=== PATIENT | female | born 1960 | race Caucasian/White ===

== ENCOUNTER 2019-04-05 14:17 | Outpatient (CLI) | payer OTHER, SELFPAY ==
--- NOTE | 2019-04-18 05:36 | SLEEP_ITS ---
Split Night Sleep Study DATE OF STUDY: 04/05/2019 PRIMARY CARE: Dr. Rk Abbott. REASON FOR THIS STUDY: Obstructive sleep apnea syndrome. HISTORY: This patient is a 59-year-old woman, 61 inches tall weighing 189 pounds with a body mass index of 35.7. She has a known history of obstructive sleep apnea syndrome on a prior study and has not had a change in her pressure for years. She originally used a full face mask and changed to a nasal pillow. She is feeling tired during the day, which started 1 or 2 years ago. She has periodic nasal congestion, which causes her to take off her CPAP mask. She goes to bed between 11 p.m. and midnight, wakes between 6 and 7 in the morning quickly, wakes once at night for nocturia, goes back to sleep easily. She has 2-3 caffeinated beverages a day and 3-4 alcoholic beverages at 1 time per week, more during the holidays. She has been compliant with CPAP usage on a pressure of 5 with an AHI of 1.5. A prior sleep study on 08/26/2013 at our sleep lab showed an optimal pressure of 5 cm with an AHI of 0. She was using a Mirage Quattro full face mask with a heated humidifier at that time. The patient currently does not gasp for breath at night. She occasionally has breathing problems witnessed by others. She rarely sweats excessively at night, notices her heart pounding irregularly at night. She rarely falls asleep during the day, rarely involuntarily, never while driving. She does not have loss of muscle tone with strong emotion. She occasionally has daytime difficulties due to sleepiness, works as a real estate manager. She does not feel paralyzed on waking or falling asleep. She does not feel afraid to go to sleep. She rarely has nightmares. She frequently remembers her dreams. She occasionally has racing thoughts. She rarely has anxiety. She occasionally has muscular tension and notices parts of her body jerking. She never kicks at night or has crawly achy feelings in her legs. She occasionally has leg pain at night. She does not have morning jaw pain. She does not grind her teeth. She occasionally is bothered by pain during the day as well at night. She frequently wakes up feeling stiff in the morning. She constantly has sore achy muscles. She frequently wakes up with pain in the neck and spine. It takes her 15 minutes to fall asleep. She does not take naps. A short nap is not refreshing. She is drowsy in the morning for 3 hours or longer. MEDICAL COMORBIDITIES: Hypothyroidism. She has had her tonsils and adenoids removed. She has also had a deviated septum repair. MEDICATIONS: 1. Levothyroxine 0.125 mg daily. 2. Estradiol 0.5 mg daily. HABITS: Smoked tobacco 10 years ago. Caffeine, 2 to 3 per day. Occasional alcohol. DESCRIPTION OF THE STUDY: On the Neligh Sleepiness Scale, her score is 7. This was conducted as a split night study using the Synergy Hub multiple channel system including EOG, EEG, submental EMG, EKG, nasal and oral airflow using thermistors and nasal pressure sensors, chest and abdominal belts, body position data, and pulse oximetry. The study was scored using [facility] guidelines. During the baseline portion, recording time was 229.6 minutes. Sleep time was 144.7 minutes. Sleep efficiency was 63%. Sleep latency was 5.9 minutes and there was no REM. She had 34 awakenings and spent 79 minutes awake after sleep onset. Sleep architecture showed 20% stage 1 sleep, 80% stage 2 sleep, no stage 3 sleep, and no REM. She spent 16.2% of this study supine. Sleep was fragmented with constant shifts between wake stage 1 and stage 2. The apnea-hypopnea index was 16.6. She had no REM during this portion. She had 1 obstructive apnea, 19 obstructive hypopneas in supine non-REM for an index of 51
== END 2019-04-05 14:18 | disposition home or self-care (01) ==
LOC: ANHCSM 06-22 14:17
PROVIDERS: PCP Internal Medicine
DX: G47.33 Obstructive sleep apnea (adult) (pediatric) (principal); Z99.89 Dependence on other enabling machines and devices
CPT/HCPCS: 95811

== ENCOUNTER 2019-10-14 11:19 | Outpatient (CLI) | payer OTHER, SELFPAY ==
--- NOTE | ~2019-10-14 | XR_ITS ---
XR lumbar spine 2-3V DATE: 10/14/2019 11:53 INDICATION: Low back pain TECHNIQUE: AP, lateral, coned lateral lumbosacral views COMPARISON: None FINDINGS: There is prominent degenerative change at the apophyseal joints of the lower lumbar and lum bosacral area with associated minimal grade 1 anterolisthesis at L5-S1. The lumbar vertebrae are otherwise normally aligned. There is moderate diffuse osteopenia. No fracture or bone destruction is evident. The T11-L5 pedicles are intact. There is moderately severe degenerative disc disease in the lower thoracic spine and moderate degener ative disease at L1-2 and L2-3, mild degenerative disc disease at L3-4. The sacroiliac joints are intact. Status post cholecystectomy. IMPRESSION: Degenerative changes Osteopenia Reviewed, dictated and finalized at location A.
[2019-10-14 12:19] LABS: Anion Gap 7 mmol/L (8-16); Blood Urea Nitrogen 14 mg/dL (7-18); Carbon Dioxide 28 mmol/L (21-32); Chloride 107 mmol/L (98-108); Cholesterol 186 mg/dL (0-200); Estimated Glomerular Filt Rate > 60; Glucose 99 mg/dL (70-99); HDL Direct 47 mg/dL (40-60); LDL Cholesterol Calculated 90 mg/dL (<130); Osmolality Calculated 294 mOsm/kg (285-295); Potassium 4.1 mmol/L (3.5-5.1); Sodium 142 mmol/L (136-145); Thyroid Stimulating Hormone 0.74 uIU/mL (0.36-3.74); Triglycerides 245 mg/dL (0-150)
== END 2019-10-14 11:20 | disposition home or self-care (01) ==
LOC: CHSLAB 11:23
PROVIDERS: PCP Internal Medicine; Visit Provider Internal Medicine
DX: M54.5 Low back pain (principal); G89.29 Other chronic pain; Z13.220 Encounter for screening for lipoid disorders; R03.0 Elevated blood-pressure reading, without diagnosis of hypertension; E03.9 Hypothyroidism, unspecified
CPT/HCPCS: 36415; 72100; 80048; 80061; 84443

== ENCOUNTER → 2019-11-10 12:47 | Outpatient (CLI) | payer OTHER, SELFPAY ==
--- NOTE | ~2019-11-10 | MM_ITS ---
EXAMINATION: MM screening [facility] BI w petar HISTORY: Screening mammogram TECHNIQUE: Craniocaudal and mediolateral oblique 3-D tomosynthesis images were obtained and synthetic 2-D images were generated. CAD analysis was submitted and interpreted. COMPARISON: 06/23/2018, 11/28/2015, 11/07/2014 BREAST PARENCHYMAL COMPOSITION: There are scattered areas of fibroglandular density. FINDINGS: RIGHT BREAST: A possible mass is present in the middle third of the outer breast approximately 7.5 cm from the nipple. LEFT BREAST: There is no evidence of suspicious mass, calcification, or architectural distortion to s uggest malignancy. There has been no significant interval change. IMPRESSION: 1. Possible right breast mass 2. Additional mammographic views and possible breast ultrasound are recommended. BI-RADS Category 0: Incomplete: Needs additional imaging evaluation. Reviewed, dictated and finalized at location A. IMPRESSION: 1. Possible right breast mass 2. Additional mammographic views and possible breast ultrasound are recommended . BI-RADS Category 0: Incomplete: Needs additional imaging evaluation.
== END ==
PROVIDERS: PCP Internal Medicine; Visit Provider Obstetrics & Gynecology
DX: Z12.31 Encounter for screening mammogram for malignant neoplasm of breast (principal); R92.8 Other abnormal and inconclusive findings on diagnostic imaging of breast
CPT/HCPCS: 77063; 77067

== ENCOUNTER → 2019-11-29 09:54 | Outpatient (CLI) | payer OTHER, SELFPAY ==
--- NOTE | ~2019-11-29 | US_ITS ---
US breast RT limited DATE: 11/29/2019 11:00 Please refer to the 11/29/2019 right diagnostic mammogram and right breast ultrasound report. IMPRESSION: BI-RADS Category 4: Suspicious abnormality; biopsy should be considered Recommendation: Ultrasound-guided biopsy of right 10:00 breast lesion Diana in Dr. Torres's office was notified of the finding and the ultrasound-guided biopsy recommenda tion on 11/29/2019 at 1110 hours Reviewed, dictated and finalized at Location A. Reviewed, dictated and finalized at location A. IMPRESSION: BI-RADS Category 4: Suspicious abnormality; biopsy should be consid ered Recommendation: Ultrasound-guided biopsy of right 10:00 breast lesion Diana in Dr. Torres's office was notified of the finding and the ultrasound-gu ided biopsy recommendation on 11/29/2019 at 1110 hours
--- NOTE | ~2019-11-29 | MM_ITS ---
EXAMINATION: MM diagnostic mammo unilat RT HISTORY: Possible mass in middle third of outer breast 7.5 cm from nipple was reported on 11/10/2019 s creening mammogram TECHNIQUE: Additional 3-D tomosynthesis images of the right breast were performed and synthetic 2-D i mages were generated. CAD analysis was submitted and interpreted. High resolution upper outer quadran t right breast ultrasound was performed. COMPARISON: 11/10/2019, 06/23/2018 and 11/28/2015 bilateral digital screening mammogram examinations FINDINGS: MAMMOGRAPHIC FINDINGS: A new or shadowing antiparallel ill-defined approximately 6.5 mm mass is suggested approximately 7 cm deep to the nipple in the upper outer quadrant of the right breast. ULTRASOUND: Corresponding to the mammographic finding at 10:00 5.5 cm from the nipple there is an ill-defined irr egular antiparallel hypoechoic area with posterior shadowing, suspicious for malignancy. IMPRESSION: 1. Approximately 6 mm malignant mass is suggested at 10:00 5.5 cm from nipple 2. Ultrasound-guided biopsy of 10:00 lesion 5.5 cm from nipple is recommended BI-RADS category 4, suspicious findings. Dr. Gatito Ortiz was telephoned by Dr. Joseph with the report and biopsy recommendation on 11/29/2019 at 1110 hours. Reviewed, dictated and finalized at location A.
== END ==
PROVIDERS: PCP Internal Medicine; Visit Provider Obstetrics & Gynecology
DX: R92.8 Other abnormal and inconclusive findings on diagnostic imaging of breast (principal)
CPT/HCPCS: 76642; 77065

== ENCOUNTER 2020-04-18 14:04 | Outpatient (CLI) | payer OTHER, SELFPAY | END 2020-04-18 14:05 | disposition home or self-care (01) | LOC: ANHCOVIDVC 14:04 | PROVIDERS: PCP Internal Medicine | DX: Z23 Encounter for immunization (principal) | CPT/HCPCS: 0001A; 91300 ==

== ENCOUNTER 2020-04-29 09:33 | Outpatient (CLI) | payer OTHER, SELFPAY ==
[2020-04-29 10:39] LABS: Anion Gap 13 mmol/L (8-16); Blood Urea Nitrogen 18 mg/dL (7-18); Carbon Dioxide 24 mmol/L (21-32); Chloride 104 mmol/L (98-108); Cholesterol 169 mg/dL (0-200); Estimated Glomerular Filt Rate > 60; Glucose 111 mg/dL (70-99); HDL Direct 51 mg/dL (40-60); LDL Cholesterol Calculated 91 mg/dL (<130); Osmolality Calculated 294 mOsm/kg (285-295); Potassium 4.2 mmol/L (3.5-5.1); Sodium 141 mmol/L (136-145); Thyroid Stimulating Hormone 0.17 uIU/mL (0.36-3.74); Triglycerides 133 mg/dL (0-150)
== END 2020-04-29 09:34 | disposition home or self-care (01) ==
LOC: CHSLAB 09:34
PROVIDERS: PCP Internal Medicine; Visit Provider Internal Medicine
DX: Z13.220 Encounter for screening for lipoid disorders (principal); E03.9 Hypothyroidism, unspecified; R03.0 Elevated blood-pressure reading, without diagnosis of hypertension
CPT/HCPCS: 36415; 80048; 80061; 84443

== ENCOUNTER 2020-05-09 13:53 | Outpatient (CLI) | payer OTHER, SELFPAY | END 2020-05-09 13:54 | disposition home or self-care (01) | LOC: ANHCOVIDVC 13:53 | PROVIDERS: PCP Internal Medicine | DX: Z23 Encounter for immunization (principal) | CPT/HCPCS: 0002A; 91300 ==

== ENCOUNTER 2020-06-24 11:24 | Outpatient (CLI) | payer OTHER, SELFPAY ==
[2020-06-24 12:22] LABS: Thyroid Stimulating Hormone 1.47 uIU/mL (0.36-3.74)
== END 2020-06-24 11:25 | disposition home or self-care (01) ==
LOC: CHSLAB 11:33
PROVIDERS: PCP Internal Medicine; Visit Provider Nurse Practitioner
DX: E03.9 Hypothyroidism, unspecified (principal)
CPT/HCPCS: 36415; 84443

== ENCOUNTER 2020-11-18 09:42 | Outpatient (CLI) | payer OTHER, SELFPAY ==
[2020-11-18 10:17] LABS: Hemoglobin A1C 5.8 % (<5.7)
[2020-11-18 11:32] LABS: Alanine Aminotransferase 85 U/L (14-59); Albumin Level 3.6 g/dL (3.4-5.0); Alkaline Phosphatase 146 U/L (46-116); Anion Gap 10 mmol/L (8-16); Aspartate Amino Transferase 42 U/L (15-37); Bilirubin,Total 0.7 mg/dL (0.00-1.00); Blood Urea Nitrogen 14 mg/dL (7-18); Calcium 8.9 mg/dL (8.5-10.1); Carbon Dioxide 25 mmol/L (21-32); Chloride 108 mmol/L (98-108); Cholesterol 192 mg/dL (0-200); Estimated Glomerular Filt Rate > 60; Glucose 86 mg/dL (70-99); HDL Direct 43 mg/dL (40-60); LDL Cholesterol Calculated 120 mg/dL (<130); Osmolality Calculated 295 mOsm/kg (285-295); Potassium 4.3 mmol/L (3.5-5.1); Sodium 143 mmol/L (136-145); Thyroid Stimulating Hormone 2.24 uIU/mL (0.36-3.74); Total Protein 6.8 g/dL (6.4-8.2); Triglycerides 147 mg/dL (0-150)
[2020-11-20 14:24] LABS: Vitamin D 25 Hydroxy 24 ng/mL (30-100)
== END 2020-11-18 09:43 | disposition home or self-care (01) ==
LOC: CHSLAB 09:47
PROVIDERS: PCP Internal Medicine; Visit Provider Nurse Practitioner
DX: E78.2 Mixed hyperlipidemia (principal); R73.02 Impaired glucose tolerance (oral); Z78.0 Asymptomatic menopausal state; E03.9 Hypothyroidism, unspecified
CPT/HCPCS: 36415; 80053; 80061; 82306; 83036; 84443

== ENCOUNTER 2022-02-18 10:32 | Outpatient (CLI) | payer OTHER, SELFPAY ==
[2022-02-18 11:00] LABS: Hemoglobin A1C 5.7 % (<5.7)
[2022-02-18 12:20] LABS: Alanine Aminotransferase 54 U/L (14-59); Albumin Level 3.9 g/dL (3.4-5.0); Alkaline Phosphatase 136 U/L (46-116); Anion Gap 13 mmol/L (8-16); Aspartate Amino Transferase 32 U/L (15-37); Bilirubin,Total 0.7 mg/dL (0.00-1.00); Blood Urea Nitrogen 18 mg/dL (7-18); Carbon Dioxide 24 mmol/L (21-32); Chloride 102 mmol/L (98-108); Cholesterol 175 mg/dL (0-200); Estimated Glomerular Filt Rate > 60; Glucose 102 mg/dL (70-99); HDL Direct 46 mg/dL (40-60); LDL Cholesterol Calculated 104 mg/dL (<130); Osmolality Calculated 289 mOsm/kg (285-295); Potassium 4.3 mmol/L (3.5-5.1); Sodium 139 mmol/L (136-145); Thyroid Stimulating Hormone 2.05 uIU/mL (0.36-3.74); Total Protein 7.2 g/dL (6.4-8.2); Triglycerides 123 mg/dL (0-150)
== END 2022-02-18 10:33 | disposition home or self-care (01) ==
LOC: CHSLAB 10:34
PROVIDERS: PCP Nurse Practitioner; Visit Provider Nurse Practitioner
DX: E78.2 Mixed hyperlipidemia (principal); E03.9 Hypothyroidism, unspecified; R73.02 Impaired glucose tolerance (oral); Z79.899 Other long term (current) drug therapy
CPT/HCPCS: 36415; 80053; 80061; 83036; 84443

== ENCOUNTER → 2022-05-05 12:12 | Outpatient (CLI) | payer OTHER, SELFPAY ==
--- NOTE | ~2022-05-05 | DEXA_ITS ---
Bone Density Report Name: KOBY ORDONEZ Age: 62 Sex: Female Ethnicity: White Date of : 1960 Indication: osteopenia; height loss; hysterectomy; postmenopausal Referring Provider: CIERA WHITE Study: Bone densitometry was performed. Exam Date: May 05, 2022 Accession number: [id number] Bone Density: Region BMD T-score Z-score Classification AP Spine (L1-L4) 0.947 -0.9 0.6 Normal Femoral Neck (Left) 0.777 -0.6 0.7 Normal Total Hip (Left) 1.109 1.4 2.4 Normal Femoral Neck (Right) 0.794 -0.5 0.8 Normal Total Hip (Right) 1.072 1.1 2.1 Normal Total Hip Mean 1.091 1.3 2.3 Normal World Health Organization criteria for BMD impression classify patients as: Normal (T-score at or above -1.0), Osteopenia (T-score between -1.0 and -2.5), or Osteoporosis (T-score at or below -2.5). 10-year Fracture Risk: FRAX not reported because: All T-scores for Spine Total, Hip Total, Femoral Neck at or above -1.0 Previous Exams: Region Exam Age BMD T-score BMD Change BMD Change Date g/cm2 vs Baseline vs Previous AP Spine(L1-L4) 05/05/2022 62 0.947 -0.9 0.050 0.015 11/07/2014 54 0.931 -1.1 0.035* 0.035* 06/21/2012 52 0.896 -1.4 Total Hip(Left) 05/05/2022 62 1.109 1.4 0.059 -0.001 06/23/2018 58 1.110 1.4 0.060 0.072 11/07/2014 54 1.038 0.8 -0.012 -0.012 06/21/2012 52 1.050 0.9 Total Hip(Right) 05/05/2022 62 1.072 1.1 0.054 0.010 06/23/2018 58 1.062 1.0 0.044 0.019 11/07/2014 54 1.043 0.8 0.025 0.025 06/21/2012 52 1.018 0.6 *Denotes significance at 95% confidence level, LSC for AP Spine = 0.022 g/cm2, LSC for Total Hip = 0.027 g/cm2 Clinical Information Provided by Patient: Has used the following medications: Vitamin D, Calcium Has the following medical conditions: Hysterectomy Patient maximum height was 61 Menopause Age: 45 No regular weight bearing exercise Drinks caffeinated beverages Onset of menses at age 13 Number of children 1 Impression: The patient has normal bone mass. No significant bone loss was observed. Discussion: BONE DENSITY IS ABOVE THE MINIMUM DESIRABLE LEVEL AT ALL SKELETAL SITES TESTED. This patient?s bone mineral density is above the minimum desirable level (T-score -1.0 or better) at all sites measured. The patient shoul
== END ==
PROVIDERS: PCP Internal Medicine; Visit Provider Obstetrics & Gynecology
DX: Z78.0 Asymptomatic menopausal state (principal)
CPT/HCPCS: 77080

== ENCOUNTER 2022-11-23 10:49 | Outpatient (CLI) | payer OTHER, SELFPAY ==
[2022-11-23 11:04] LABS: Hematocrit 41.5 % (35.0-49.0); Hemoglobin 13.8 g/dL (12.0-15.0); Mean Corpuscular HGB Conc 33.3 g/dL (32.0-36.0); Mean Corpuscular Hemoglobin 29.9 pg (27.0-31.0); Mean Corpuscular Volume 89.8 fL (78.0-102.0); Mean Platelet Volume 9.3 fl (9.2-11.8); Platelet Count Result 275 K/mm3 (150-420); Red Blood Count 4.62 M/mm3 (4.20-5.40); Red Cell Distribution Width 12.9 % (11.6-14.4); White Blood Count 7.3 K/mm3 (4.8-10.8)
[2022-11-23 11:27] LABS: Hemoglobin A1C 5.7 % (<5.7)
[2022-11-23 11:45] LABS: Alanine Aminotransferase 39 U/L (14-59); Albumin Level 3.5 g/dL (3.4-5.0); Alkaline Phosphatase 139 U/L (46-116); Anion Gap 11 mmol/L (8-16); Aspartate Amino Transferase 20 U/L (15-37); Bilirubin,Total 1.4 mg/dL (0.00-1.00); Blood Urea Nitrogen 13 mg/dL (7-18); Calcium 9.1 mg/dL (8.5-10.1); Carbon Dioxide 26 mmol/L (21-32); Chloride 107 mmol/L (98-108); Cholesterol 177 mg/dL (0-200); Estimated Glomerular Filt Rate > 60; Free T4 Free Thyroxine 1.01 ng/dL (0.76-1.46); Glucose 105 mg/dL (70-99); HDL Direct 46 mg/dL (40-60); LDL Cholesterol Calculated 102 mg/dL (<130); Osmolality Calculated 298 mOsm/kg (285-295); Sodium 144 mmol/L (136-145); Thyroid Stimulating Hormone 3.12 uIU/mL (0.36-3.74); Total Protein 6.7 g/dL (6.4-8.2); Triglycerides 146 mg/dL (0-150)
== END 2022-11-23 10:50 | disposition home or self-care (01) ==
PROVIDERS: PCP Radiology Diagnostic Radiology; Visit Provider Nurse Practitioner
DX: R73.02 Impaired glucose tolerance (oral) (principal); E78.5 Hyperlipidemia, unspecified; E03.9 Hypothyroidism, unspecified; E78.2 Mixed hyperlipidemia; Z79.899 Other long term (current) drug therapy
CPT/HCPCS: 36415; 80053; 80061; 83036; 84439; 84443; 85027

== ENCOUNTER 2024-02-23 11:26 | Outpatient (CLI) | payer OTHER, SELFPAY ==
[2024-02-23 12:00] LABS: Basophils Absolute Auto 0.09 K/mm3 (0.00-0.10); Basophils Percent Auto 1.1 % (0.0-1.0); Eosinophils Absolute Auto 0.26 K/mm3 (0.02-0.50); Hematocrit 44.3 % (35.0-49.0); Hemoglobin 14.5 g/dL (12.0-15.0); Immature Granulocyte Absolute 0.03 K/mm3 (0.00-0.00); Immature Granulocyte Percent A 0.4 % (0.0-0.0); Lymphocytes Absolute Auto 3.05 K/mm3 (1.10-4.50); Lymphocytes Percent Auto 35.6 % (18.0-42.0); Mean Corpuscular HGB Conc 32.7 g/dL (32-36); Mean Corpuscular Hemoglobin 29.4 pg (27.0-31.0); Mean Corpuscular Volume 89.7 fL (78.0-102.0); Mean Platelet Volume 8.9 fl (9.2-11.8); Monocytes Absolute Auto 0.67 K/mm3 (0.10-0.90); Monocytes Percent Auto 7.8 % (2.0-11.0); Neutrophils Absolute Auto 4.46 K/mm3 (1.70-7.20); Neutrophils Percent Auto 52.1 % (50.0-70.0); Platelet Count Result 316 K/mm3 (150-420); Red Blood Count 4.94 M/mm3 (4.20-5.40); Red Cell Distribution Width 13.3 % (11.6-14.4); White Blood Count 8.6 K/mm3 (4.8-10.8)
[2024-02-23 12:29] LABS: Alanine Aminotransferase 79 U/L (14-59); Albumin Level 3.8 g/dL (3.4-5.0); Alkaline Phosphatase 132 U/L (46-116); Anion Gap 7 mmol/L (4-12); Aspartate Amino Transferase 33 U/L (15-37); Bilirubin,Total 1.1 mg/dL (0.00-1.00); Blood Urea Nitrogen 13 mg/dL (7-18); Carbon Dioxide 30 mmol/L (21-32); Chloride 104 mmol/L (98-108); Cholesterol 189 mg/dL (0-200); Estimated Glomerular Filt Rate > 60; Glucose 99 mg/dL (70-99); HDL Direct 61 mg/dL (40-60); LDL Cholesterol Calculated 98 mg/dL (<130); Osmolality Calculated 292 mOsm/kg (285-295); Potassium 4.5 mmol/L (3.5-5.1); Sodium 141 mmol/L (136-145); Total Protein 7.1 g/dL (6.4-8.2); Triglycerides 151 mg/dL (0-150)
== END 2024-02-23 11:27 | disposition home or self-care (01) ==
LOC: CHSLAB 11:31
PROVIDERS: PCP Internal Medicine; Visit Provider Internal Medicine
DX: E78.5 Hyperlipidemia, unspecified (principal)
CPT/HCPCS: 36415; 80053; 80061; 83036; 84443; 85025

== ENCOUNTER 2024-10-13 10:20 | Outpatient (CLI) | payer OTHER, SELFPAY ==
--- OUTSIDE RECORDS SUMMARY | 2024-10-13 10:43 | XMS_ITS | Clinical Summary ---
Author Organization [facility] Address [address] [place] [address] Phone Care Team Providers Care Sleep Lab Technologist Name Role Phone Tristen Amaya MD Primary Care Provider [phone] Allergies Active Allergy Reactions Criticality Noted Date Comments Adhesive Rash Low 06/28/2012 Iodine Unknown 06/28/2012 Tetracycline Unknown 06/28/2012 Medications levothyroxine (SYNTHROID) 100 mcg Oral tablet Take 0.125 mcg by mouth daily radio disc jockey. Active CALCIUM ORAL Take by mouth. Active naproxen (NAPROSYN) 500 mg tablet Take 500 mg by mouth 2 times daily with meals. Active estradiol (ESTRACE) 0.5 mg tablet Take 0.5 mg by mouth daily. Active ospemifene (OSPHENA ORAL) Take by mouth. Active omega-3 fatty acids/fish oil (FISH OIL EXTRA STRENGTH ORAL) Take by mouth. Active Active Problems Patient Care Coordination No te Formatting of this note migh t be different from the original. Primary Care: Tristen Amaya MD Referring Provider: Cyndy Bynum MD [address] [facility] [address] [place] [address] Other: Problem Noted Date Diagnosed Date Morbid obesity with body mass index of 40.0-49.9 01/18/2019 Assessment & Plan (01/18/2019 1:38 PM SALVAGE INSPECTOR): VAISHALI on CPAP 01/18/2019 Axillary mass 06/28/2012 Immunizations Immunization Administration Dates Next Due Influenza Seasonal Unspecified Formulation IM Family History Medical History Relation Name Comments Hypertension Brother Cancer Father Diabetes Father Emphysema Father Heart Failure Father Hypertension Father Lung Cancer Father Heart Disease Mother Heart Failure Mother Hypertension Mother Hypertension Sister Asthma Neg Hx Bronchitis Neg Hx Mesothelioma Neg Hx Relation Name Status Comments Brother Father Mother Sister Social History Tobacco Use Types Packs/Day Years Used Date Smoking Tobacco: Former Cigarettes 0 03/03/1980 - 03/03/2005 Smokeless Tobacco: Never Alcohol Use Standard Drinks/Week Comments Yes 0 (1 standard drink = 0.6 oz pur e alcohol) moderate - socially Comments No Sex and Gender Information Value Date Recorded Sex Assigned at Not on file Legal Sex Female 11:01 AM CDT Gender Identity Not on file Sexual Orientation Not on file Occupation Industry Job Start Date Job End Date Not on file Not on file Not on file Not on file Last Filed Vital Signs Vital Sign Reading Time Taken Comments Blood Pressure 132/74 01/18/2019 11:29 AM SALVAGE INSPECTOR Pulse 79 01/18/2019 11:29 AM SALVAGE INSPECTOR Temperature 37.1 C (98.8 F) 07/06/2012 10:34 AM CDT Respiratory Rate 16 01/18/2019 11:29 AM SALVAGE INSPECTOR Oxygen Saturation 97% 01/18/2019 11:29 AM SALVAGE INSPECTOR RA Inhaled Oxygen Concentration - - Weight 93 kg (205 lb) 01/18/2019 11:29 AM SALVAGE INSPECTOR Height 152.4 cm (5') 01/18/2019 11:29 AM SALVAGE INSPECTOR Body Mass Index 40.04 01/18/2019 11:29 AM SALVAGE INSPECTOR Plan of Treatment Health Maintenance Due Date Last Done Comments Pre-Diabetes and Diabetes Screening 1960 DTAP/TDAP/TD VACCINES (1 - Tdap) 02/24/1980 HPV/Cotest (21-29) 1982 CERVICAL CANCER SCREENING 1991 HPV/Cotest (30-65) 1991 PAP SMEAR 1991 COLORECTAL SCREENING 2006 Colorectal Cancer Screening 2006 FIT-DNA Q 3 years 2006 FIT/FOBT Q 1 year 2006 Flex Sig/CT Colonography Q 5 years 2006 ZOSTER VACCINE (1 of 2) 2011 BREAST CANCER SCREENING 07/21/2013 07/22/19 13, 01/08/2012, 10/01/2009, Additional history exists RSV VACCINE (60+ or ) (1 - Risk 60-74 years 1-dose series) 2021 INFLUENZA VACCINE (#1) 2024 11/18/2018 Procedures Procedure Name Priority Date/Time Associated Diagnosis Comments MAMMO SCREENING BILAT Routine 07/21/2012 from Last 3 Months or Most Recently Relevant to Health Maintenance Results * MAMMO SCREENING BILAT (07/21/2012) Anatomical Region Laterality Modality Breast Bilateral Other us Erasto Perez MD MAMMO ORDERABLES Final Resu lt from Last 3 Months or Most Recently Relevant to Health Maintenance Insurance OPTIONS PPO [id number] [facility] Address: [facility] [id number] [place] [address] Advance Directives For more information, please contact: [phone] * Full Code (Latest Code Status on File) Date Activated Date Inactivated Comments 07/06/2012 8:54 AM 07/06/2012 2:05 PM * Full Code Date Activated Date Inactivated Comments 07/06/2012 8:26 AM 07/06/2012 8:54 AM Care Teams Sleep Lab Technologist Relationship Specialty Start Date End Date Tristen Amaya MD PCP - General Family Practice 06/28/12
--- OUTSIDE RECORDS SUMMARY | 2024-10-13 10:43 | XMS_ITS | Clinical Summary ---
Author Organization [facility] Address [address] [place] [address] Care Team Providers Care Treasury Accountant Name Role Phone Gatito Torres MD Unavailable Gatito Torres MD Unavailable [phone] Rk Abbtot DO Primary Care Provider Allergies Active Allergy Reactions Criticality Noted Date Comments Adhesive Tape-Silicones Iodine Hives,Unknown Medium 06/28/2012 Tetracycline Nausea only Low Medications calcium-vits K8-Y-F8-mineral s 166.75 mg- 166.75 unit capsule Take by mouth. Activ e celecoxib (CeleBREX) 200 mg capsule 0 Active Synthroid 100 mcg tablet 1 Active cholecalciferol (VITAMIN D-3) 5,000 unit capsule 1 Active venlafaxine XR (EFFEXOR-XR) 37.5 mg 24 hr capsule 3 Active methylPREDNISol one (Medrol, Levar,) 4 mg DosepackIndicat ions:Non-recurr ent acute serous otitis media of both ears follow package directions 1 packet 4 Active Additional Information Patient not taking.Reported on 02/03/2024 Active Problems Problem Noted Date Diagnosed Date Abnormal findings on diagnostic imaging of charly t 08/05/2020 Acute pain of left shoulder 10/19/2019 Chronic right shoulder pain 10/19/2019 Osteoarthritis of both glenohumeral joints 10/18 Morbid obesity with body mass index of 40.0-49.9 01/18/2019 Overview (10/19/2019): Last Assessment & Plan: VAISHALI on CPAP 01/18/2019 Primary osteoarthritis of right shoulder 018 Overview (10/27/2017): Added automatically from request for surgery [id number] Adhesive capsulitis of right shoulder 08/19/2017 Osteoarthritis of glenohumeral joint, right 08/08 Acute pain of right shoulder 08/04/2017 Hypothyroidism 02/21/2013 Overview (05/13/2016): HYPOTHYROIDISM NOS Axillary mass 06/28/2012 Fatigue 10/06/2011 Overview (05/13/2016): Fatigue Surgical History Surgery Date Site/Laterality Comments CARPAL TUNNEL RELEASE Carpal tunnel release APPENDECTOMY Appendectomy TONSILLECTOMY Tonsillectomy HYSTERECTOMY Hysterectomy SECTION section MYOMECTOMY Myomectomy CHOLECYSTECTOMY WISDOM TOOTH EXTRACTION TYMPANOPLASTY Left BREAST BIOPSY 01/10/2020 Right Medical History Medical History Date Comments Obesity Sleep apnea, obstructive Hypothyroidism Arthritis KOBUK (hard of hearing) left Family History Medical History Relation Name Comments Hypertension Brother Breast cancer Cousin Cancer Father Diabetes Father Heart disease Father Hypertension Father Lung disease Father Arthritis Mother Heart disease Mother Hypertension Mother Kidney disease Mother Stroke Mother Coronary artery disease Other 1 Fami ly history of Coronary artery disease; Diabetes type II Other 2 Family hist ory of Diabetes -Type II; Hyperlipidemia Other 3 Family histor y of Hyperlipidemia; Hypertension Other 4 Family history of Hypertension; Arthritis Sister Hypertension Sister Relation Name Status Comments Brother Cousin Father Mother Other 1 Other 2 Other 3 Other 4 Sister Social History Tobacco Use Types Packs/Day Years Used Date Smoking Tobacco: Former Smokeless Tobacco: Never Tobacco Cessation:Counseling Given: Not Answered Alcohol Use Standard Drinks/Week Comments Yes 0 (1 standard drink = 0.6 oz pur e alcohol) Comments No Sex and Gender Information Value Date Recorded Sex Assigned at Not on file Legal Sex Female 11:02 AM HEAD OF LOSS PREVENTION Gender Identity Female 07/30/2017 12:18 PM CDT Sexual Orientation Not on file Obstetrics History Para Term AB IAB SAB Ectopic Multiple Livin g Live Births 1 1 1 Date Outcome GA Total Labor Labor/2nd/3rd Weight Sex Type Anes PTL Estephania A1 A5 Name Clin Term Last Filed Vital Signs Vital Sign Reading Time Taken Comments Blood Pressure 144/86 02/03/2024 10:24 AM HEAD OF LOSS PREVENTION Pulse 84 02/03/2024 10:24 AM HEAD OF LOSS PREVENTION Temperature 36.8 C (98.3 F) 02/03/2024 10:24 AM HEAD OF LOSS PREVENTION Respiratory Rate 24 02/03/2024 10:2 4 AM HEAD OF LOSS PREVENTION Oxygen Saturation 98% 02/03/2024 10: 24 AM HEAD OF LOSS PREVENTION Inhaled Oxygen Concentration - - Weight 100.2 kg (220 lb 14.4 oz) 06/19/2024 1:28 PM CDT Height 152.4 cm (5') 06/19/2024 1:28 PM CDT Body Mass Index 43.14 06/19/2024 1:28 PM CDT Plan of Treatment Health Maintenance Due Date Last Done Comments Colon Cancer Screening-Colonoscopy 1960 Depression Screening 1960 Hepatitis C Screening 1960 DTaP/Tdap/Td Vaccine (1 - Tdap) 02/24/1972 Hepatitis B Screening 1979 Regular Well Visit/Exam 18-64 1979 Zoster Vaccine (2 of 2) 05/09/2019 03/14/2019 Covid-19 Vaccine ( season) 2023 01/04/2023, 01/17/2022, 01/24/2021, Additional history exists Influenza Vaccine (#1) 2024 , 11/23/2022, 11/17/2020, Additional history exists Breast Cancer Screening-Mammogram 06/19/2025 06/19/2024, 04/01/2023, 03/18/2022, Additional history exists Pneumococcal vaccine <65 Aged Out No longer eligible based on patient's age to complete this topic Procedures Procedure Name Priority Date/Time Associated Diagnosis Comments SCREENING MAMMOGRAM BILATERAL W JORGE Schedule Routine, Read Routine (OP Routine) 06/19/2024 1:35 PM CDT Encounter for screening mammogram for malignant neoplasm of breast from Last 3 Months or Most Recently Relevant to Health Maintenance Results * Screening Mammogram Bilateral W Jorge (06/19/2024 1:35 PM CDT) Anatomical Region Laterality Modality Breast Bilateral Mammography Impressions 06/19/2024 9:46 PM CDT Bilateral No evidence of malignancy in either breast. OVERALL BI-RADS FINAL ASSESSMENT: 1 - Negative RECOMMENDATION: Recommend bilateral annual screening mammography. Narrative 06/19/2024 9:46 PM CDT EXAMINATION: Screening Mammogram Bilateral W Jorge: 06/19/2024 COMPARISON: Relevant prior studies available at the time of interpretation were reviewed. TECHNIQUE: Mammography was performed with 2D and digital breast tomosynthesis (DBT) images. CAD was utilized. BREAST PARENCHYMAL COMPOSITION: There are scattered areas of fibroglandular density. FINDINGS: Bilateral There is no suspicious mass, calcification, or architectural distortion in either breast.There is a post biopsy clip in the right breast. us Self Screening Mammogram IMG MAMMO PROCEDURES Fi nal Result from Last 3 Months or Most Recently Relevant to Health Maintenance Insurance [facility] CHOICE PLUS [facility] HMO/PPO Address: [facility] [address] [place] [address] [facility] [place] [address] [facility] CHOICE [employer] HMO/PPO Address: [address] [place] [address] [place] [address] [facility] CHOICE [facility] HMO/PPO Address: [place] [address] Advance Directives For more information, please contact: [phone] * Full Code (Latest Code Status on File) Date Activated Date Inactivated Comments 11/24/2017 10:26 AM 11/24/2017 1:43 PM Care Teams Treasury Accountant Relationship Specialty Start Date End Date Gatito Torres MD [address] [place] [id number] PCP - respiratory therapist assistant Obstetrics and Gynecology 03/24/23 Rk Abbott DO [address] [address] PCP - General Internal Medicine 12/10/23 Gatito Torres MD [address] [facility] [address] [address] Referring Physician Obstetrics and Gynecology 01/29/20
[2024-10-13 10:53] LABS: Hemoglobin A1C 5.3 % (<5.7)
[2024-10-13 11:47] LABS: Alanine Aminotransferase 20 U/L (6-35); Albumin Level 4.3 g/dL (3.5-5.1); Alkaline Phosphatase 107 U/L (38-126); Anion Gap 11 mmol/L (4-12); Aspartate Amino Transferase 23 U/L (14-36); Bilirubin,Total 1.4 mg/dL (0.2-1.3); Blood Urea Nitrogen 16 mg/dL (7-17); Calcium 10.0 mg/dL (8.4-10.2); Carbon Dioxide 24 mmol/L (22-30); Chloride 106 mmol/L (98-107); Cholesterol 181 mg/dL (0-200); Estimated Glomerular Filt Rate > 60; Glucose 94 mg/dL (65-110); HDL Direct 51 mg/dL; Osmolality Calculated 293 mOsm/kg (285-295); Potassium 4.3 mmol/L (3.4-5.0); Sodium 141 mmol/L (137-145); Total Protein 7.2 g/dL (6.3-8.2); Triglycerides 138 mg/dL (<150)
[2024-10-13 12:03] LABS: Free T4 Free Thyroxine 1.71 ng/dL (0.78-2.19)
[2024-10-13 12:17] LABS: Thyroid Stimulating Hormone 0.026 uIU/mL (0.465-4.680)
== END 2024-10-13 10:21 | disposition home or self-care (01) ==
PROVIDERS: PCP Internal Medicine; Visit Provider Internal Medicine
DX: R73.9 Hyperglycemia, unspecified (principal); E78.5 Hyperlipidemia, unspecified; E03.9 Hypothyroidism, unspecified; R73.02 Impaired glucose tolerance (oral); E78.2 Mixed hyperlipidemia; R03.0 Elevated blood-pressure reading, without diagnosis of hypertension
CPT/HCPCS: 36415; 80053; 80061; 83036; 84439; 84443